=== PATIENT | female | born 1960 | race Caucasian/White ===

== ENCOUNTER → 2016-04-16 | Day surgery (SDC) | payer OTHER ==
[~2016-04-16] VITALS: Ht 157.4 cm; Wt 117.9 kg
[~2016-04-16] MED LIST: ANAPROX DS550 MG PO; CARAFATE1 GM/10 ML PO; CIPRO500 MG PO; CIPROFLOXACIN500 MG PO; CLARITIN10 MG PO; Carafate1 GM/10 ML PO; DELTASONE20 M1 PO; ETODOLAC ER400 MG PO; FLAGYL500 MG PO; FLONASE ALLERG9.9 ML NAS; MICROZIDE12.5 M1 PO; NEXIUM40 MG PO; PRILOSEC20 M1 PO; PRILOSEC40 M1 PO; PYRIDIUM200 MG PO; VICODIN 5/500 505 MG PO; ZITHROMAX250 MG PO; ZOFRAN ODT4 MG SL
--- NOTE | ~2016-04-16 | PROC NOTE ---
[place], [place] PROCEDURE NOTE NAME: KENYATTA CEDENO [facility] #: [id number] UNIT #: [id number] ROOM: DOCTOR: YUAN MCKEON,KYRA BIRTHDATE: [birth year] DOS: 04/16/2016 PROCEDURE PERFORMED: Esophagogastroduodenoscopy and biopsy. INDICATIONS: HISTORY of gastric ulcer and Grant's esophagus. An informed consent was obtained from the patient after indication of procedure, the alternatives and potential complications were explained to her. PROCEDURE MEDICATIONS: Sedation was administered by Anesthesiology Department. Scope used was Olympus diagnostic adult upper endoscope GIF-180. That insertion was to descending duodenum. FINDINGS: After adequate sedation, the patient was placed in left lateral decubitus position, scope was introduced under direct visualization through the upper esophageal sphincter into the esophagus. Esophageal mucosa appeared normal with irregular Z-line borders suggestive of short-segment Grant esophagus, seen from 34-36 cm. The stomach was then intubated, gastric mucosa inspected. Small to medium amounts of food residues were noted suggestive of delayed gastric emptying. Underlying mucosa appeared normal with healed gastric ulcers and no other abnormalities. Retroflex views and fundus were unremarkable. The pylorus was intubated easily. The duodenal bulb and descending duodenum were within normal range. Scope was then withdrawn after the stomach was decompressed. The patient tolerated the procedure well. IMPRESSION: 1. Irregular Z-line border, rule out short-segment Grant esophagus, biopsies obtained. 2. Food residues in the stomach, rule out gastroparesis. 3. Healed gastric ulcer. PLAN: We will review the histopathology reports and treat the patient accordingly. The patient will be scheduled for a small bowel study as an outpatient. Office followup will be in 2-3 weeks. KYRA BOLDEN MD CM:PROCNOTE:PROCEDURE NOTE [id number] [facility]ITALCOOKIE BOLDEN MD
[2016-04-16 08:24] VITALS: BP 135/75
[2016-04-16 08:50] VITALS: BP 152/79
[2016-04-16 09:05] VITALS: BP 138/72
[2016-04-16 09:20] VITALS: BP 119/72
== END | disposition home or self-care (01) ==
LOC: SDC 04-13 14:45
DX: K22.70 Barrett's esophagus without dysplasia (principal); K21.0 Gastro-esophageal reflux disease with esophagitis; G47.30 Sleep apnea, unspecified; F17.210 Nicotine dependence, cigarettes, uncomplicated; Z98.51 Tubal ligation status

== ENCOUNTER → 2016-05-04 | Outpatient (CLI) | payer OTHER | END | disposition home or self-care (01) | LOC: CT 04-27 16:00 | DX: K57.92 Diverticulitis of intestine, part unspecified, without perforation or abscess without bleeding (principal); Z90.49 Acquired absence of other specified parts of digestive tract ==

== ENCOUNTER 2017-04-05 00:32 | Emergency (ER) | payer MEDICARE ==
[~2017-04-05] VITALS: Ht 157.4 cm; Wt 99.8 kg
[2017-04-05] MEDS ORDERED: AUGMENTIN 875875 MG PO (00:47)
[2017-04-05] MEDS ORDERED: FLONASE ALLERG9.9 ML NAS (00:47)
== END 2017-04-05 01:05 | disposition home or self-care (01) ==
LOC: ED 00:32
DX: J01.00 Acute maxillary sinusitis, unspecified (principal); F17.200 Nicotine dependence, unspecified, uncomplicated; E66.01 Morbid (severe) obesity due to excess calories; Z91.040 Latex allergy status; Z79.899 Other long term (current) drug therapy; Z68.42 Body mass index [BMI] 45.0-49.9, adult

== ENCOUNTER 2017-06-27 19:46 | Emergency (ER) | payer MEDICARE ==
[~2017-06-27] VITALS: Ht 157.4 cm; Wt 93.9 kg
[~2017-06-27 19:46] MED LIST changes: +AUGMENTIN 875875 MG PO
[2017-06-27 20:21] LABS: BASO % 0.4 % (0.0-1.0); EOS # 0.2 10*3/uL (0.0-0.4); EOS % 2.1 % (1.0-4.0); HEMATOCRIT 47.1 % (37.0-47.0); HEMOGLOBIN 15.7 g/dl (12.0-16.0); LYMPH # 2.2 10*3/uL (1.3-4.4); LYMPH % 22.6 % (27.0-41.0); MEAN CELL VOLUME 97.1 fl (81.0-99.0); MEAN CORPUSCULAR HGB 32.4 pg (27.0-31.0); MEAN CORPUSCULAR HGB CONC 33.3 g/dl (33.0-37.0); MEAN PLATELET VOLUME 9.8 fl (9.6-12.3); MONO # 0.9 10*3/uL (0.1-1.0); MONO % 8.9 % (3.0-9.0); NEUT # 6.4 10*3/uL (2.3-7.9); NEUT % 65.5 % (47.0-73.0); PLATELET COUNT AUTOMATED 206 10*3/uL (130-400); RED BLOOD COUNT 4.85 10*6/uL (4.10-5.10); RED CELL DISTRI WIDTH 14.5 % (0-14.5); WHITE BLOOD COUNT 9.7 10*3/uL (4.8-10.8)
[2017-06-27 20:31] LABS: ACT PARTIAL THROMBO TIME 26.7 SECONDS (20.8-31.5)
[2017-06-27 20:43] LABS: ALBUMIN 3.5 gm/dl (3.1-4.5); ALKALINE PHOSPHATASE 92 U/L (45-117); BUN 16 mg/dl (7-24); CHLORIDE 112 mmol/L (98-107); CREATININE 0.72 mg/dL (0.55-1.02); POTASSIUM 3.8 mmol/L (3.5-5.1); SGOT/AST 14 IU/L (3-35); SGPT/ALT 23 U/L (12-78); SODIUM 143 mmol/L (136-145); TOTAL PROTEIN 6.8 gm/dL (6.4-8.2); TROPONIN I < 0.015 ng/ml (<0.045)
== END 2017-06-27 22:28 | disposition home or self-care (01) ==
LOC: ED 19:46
PROVIDERS: Student in an Organized Health Care Education/Training Program
DX: R00.2 Palpitations (principal); F17.200 Nicotine dependence, unspecified, uncomplicated; Z90.49 Acquired absence of other specified parts of digestive tract; Z98.51 Tubal ligation status; Z79.899 Other long term (current) drug therapy; Z91.040 Latex allergy status

== ENCOUNTER → 2019-09-13 | Outpatient (CLI) | payer MEDICARE | END | disposition home or self-care (01) | LOC: MAMMO 09:00 | DX: M79.89 Other specified soft tissue disorders (principal); N64.9 Disorder of breast, unspecified ==

== ENCOUNTER → 2020-07-31 | Outpatient (CLI) | payer MEDICARE ==
[2020-07-31 11:19] LABS: BASO # 0.1 10*3/uL (0.0-0.1); BASO % 0.6 % (0.0-1.0); EOS # 0.3 10*3/uL (0.0-0.4); EOS % 3.2 % (1.0-4.0); HEMATOCRIT 47.7 % (37.0-47.0); LYMPH # 1.6 10*3/uL (1.3-4.4); LYMPH % 20.9 % (27.0-41.0); MEAN CORPUSCULAR HGB 32.5 pg (27.0-31.0); MEAN CORPUSCULAR HGB CONC 32.5 g/dl (33.0-37.0); MEAN PLATELET VOLUME 9.2 fl (9.6-12.3); MONO # 0.7 10*3/uL (0.1-1.0); MONO % 9.1 % (3.0-9.0); NEUT % 65.4 % (47.0-73.0); PLATELET COUNT AUTOMATED 259 10*3/uL (130-400); RED BLOOD COUNT 4.77 10*6/uL (4.10-5.10); RED CELL DISTRI WIDTH 14.2 % (0-14.5); RETICULOCYTE % 1.35 % (0.50-2.50); WHITE BLOOD COUNT 7.7 10*3/uL (4.8-10.8)
[2020-07-31 11:20] LABS: BILIRUBIN Negative (Negative); BLOOD Trace-Intact (Negative); CLARITY Cloudy (Clear); COLOR Yellow (Yellow); GLUCOSE Negative (Negative); KETONE 1+ (Negative); LEUKO ESTERASE 2+ (Negative); NITRITE Negative (Negative); SPECIFIC GRAVITY 1.025 (1.001-1.030)
[2020-07-31 11:26] LABS: BACTERIA 2+; EPITHELIAL CELLS TNTC; MUCOUS TRACE; RBC 0-2 rbc/hpf (0-2)
[2020-07-31 11:51] LABS: ALBUMIN 3.1 gm/dl (3.1-4.5); BUN 10 mg/dl (7-24); CHLORIDE 107 mmol/L (98-107); CHOLESTEROL 192 mg/dL (<200); GAMMA GLUTAMYL TRANSPEPTIDASE 16 U/L (5-55); HDL CHOLESTEROL 65 mg/dl (40-60); IRON 77 ug/dL (50-170); LDL CHOLESTEROL 107 mg/dL (9-159); POTASSIUM 3.7 mmol/L (3.5-5.1); SGOT/AST 12 IU/L (3-35); SGPT/ALT 14 U/L (12-78); SODIUM 141 mmol/L (136-145); TOTAL IRON BINDING CAPACITY 269 ug/dl (250-450); TOTAL PROTEIN 7.4 gm/dL (6.4-8.2); TRIGLYCERIDES 101 mg/dl (<150); VLDL CHOLESTEROL 20 mg/dL (6-40)
[2020-07-31 11:57] LABS: FERRITIN 155.3 ng/mL (10.0-291.0); VITAMIN D, 25-HYDROXY 10.6 ng/mL (30-100)
[2020-07-31 11:59] LABS: ALKALINE PHOSPHATASE 86 U/L (45-117)
== END | disposition home or self-care (01) ==
LOC: LAB 10:56
PROVIDERS: ATTEND Family Medicine
DX: E55.9 Vitamin D deficiency, unspecified (principal); E78.5 Hyperlipidemia, unspecified; R53.83 Other fatigue; R79.89 Other specified abnormal findings of blood chemistry

== ENCOUNTER → 2020-09-09 | Outpatient (CLI) | payer MEDICARE ==
[2020-09-09 10:43] LABS: BASO % 0.4 % (0.0-1.0); EOS # 0.3 10*3/uL (0.0-0.4); EOS % 3.9 % (1.0-4.0); HEMATOCRIT 49.1 % (37.0-47.0); LYMPH # 1.4 10*3/uL (1.3-4.4); MEAN CELL VOLUME 101.7 fl (81.0-99.0); MEAN CORPUSCULAR HGB 32.7 pg (27.0-31.0); MEAN CORPUSCULAR HGB CONC 32.2 g/dl (33.0-37.0); MEAN PLATELET VOLUME 9.4 fl (9.6-12.3); MONO # 0.8 10*3/uL (0.1-1.0); MONO % 11.7 % (3.0-9.0); NEUT # 4.4 10*3/uL (2.3-7.9); NEUT % 63.4 % (47.0-73.0); PLATELET COUNT AUTOMATED 268 10*3/uL (130-400); RED BLOOD COUNT 4.83 10*6/uL (4.10-5.10); RED CELL DISTRI WIDTH 14.1 % (0-14.5); WHITE BLOOD COUNT 6.9 10*3/uL (4.8-10.8)
[2020-09-09 10:49] LABS: BILIRUBIN Negative (Negative); BLOOD Trace-Intact (Negative); CLARITY Clear (Clear); COLOR Yellow (Yellow); GLUCOSE Negative (Negative); KETONE Negative (Negative); LEUKO ESTERASE Negative (Negative); NITRITE Negative (Negative); PH 5.5 (4.5-8.0)
[2020-09-09 11:00] LABS: ALBUMIN 3.4 gm/dl (3.1-4.5); ALKALINE PHOSPHATASE 90 U/L (45-117); BUN 15 mg/dl (7-24); CHLORIDE 111 mmol/L (98-107); CREATININE 0.65 mg/dL (0.55-1.02); SGOT/AST 12 IU/L (3-35); SGPT/ALT 19 U/L (12-78); SODIUM 143 mmol/L (136-145); TOTAL PROTEIN 7.6 gm/dL (6.4-8.2)
[2020-09-09 11:22] LABS: BACTERIA 2+; MUCOUS 2+; WBC 0-2 wbc/hpf (0-5)
== END | disposition home or self-care (01) ==
LOC: LAB 10:19 → CT 11:00
PROVIDERS: ATTEND Urology
DX: D35.02 Benign neoplasm of left adrenal gland (principal); R31.9 Hematuria, unspecified

== ENCOUNTER → 2020-10-06 | Outpatient (CLI) | payer MEDICARE ==
[2020-10-06 09:50] LABS: BASO % 0.5 % (0.0-1.0); EOS # 0.5 10*3/uL (0.0-0.4); EOS % 5.6 % (1.0-4.0); HEMATOCRIT 47.6 % (37.0-47.0); LYMPH # 1.5 10*3/uL (1.3-4.4); LYMPH % 18.8 % (27.0-41.0); MEAN CORPUSCULAR HGB 33.2 pg (27.0-31.0); MEAN CORPUSCULAR HGB CONC 33.2 g/dl (33.0-37.0); MEAN PLATELET VOLUME 9.3 fl (9.6-12.3); MONO # 0.8 10*3/uL (0.1-1.0); NEUT # 5.3 10*3/uL (2.3-7.9); NEUT % 64.7 % (47.0-73.0); PLATELET COUNT AUTOMATED 268 10*3/uL (130-400); RED BLOOD COUNT 4.76 10*6/uL (4.10-5.10); RED CELL DISTRI WIDTH 13.6 % (0-14.5); WHITE BLOOD COUNT 8.2 10*3/uL (4.8-10.8)
[2020-10-06 09:56] LABS: ALKALINE PHOSPHATASE 82 U/L (45-117); BUN 8 mg/dl (7-24); CHLORIDE 108 mmol/L (98-107); CREATININE 0.46 mg/dL (0.55-1.02); POTASSIUM 3.3 mmol/L (3.5-5.1); SGOT/AST 13 IU/L (3-35); SGPT/ALT 16 U/L (12-78); SODIUM 141 mmol/L (136-145); TOTAL PROTEIN 7.4 gm/dL (6.4-8.2)
[2020-10-08 12:07] LABS: CREATININE, RANDOM URINE 93.8 mg/dL (Not Estab.)
[2020-10-10 02:06] LABS: METANEPHRINE, PLASMA <10.0 pg/mL (0.0-88.0); NORMETANEPHRINE, PLASMA 87.5 pg/mL (0.0-136.8)
[2020-10-14 18:07] LABS: METANEPH-CREAT RATIO 0.7 (0.0-1.0)
[2020-10-19 11:06] LABS: VMA RANDOM 4.8 mg/L (Undefined)
== END | disposition home or self-care (01) ==
LOC: LAB 10-03 11:50
PROVIDERS: ATTEND Urology
DX: E27.9 Disorder of adrenal gland, unspecified (principal)

== ENCOUNTER → 2020-12-03 | Outpatient (CLI) | payer MEDICARE | END | disposition home or self-care (01) | LOC: RAD 16:05 | PROVIDERS: ATTEND Chiropractor | DX: M47.812 Spondylosis without myelopathy or radiculopathy, cervical region (principal); M54.5 Low back pain ==

== ENCOUNTER → 2021-08-21 | Outpatient (CLI) | payer MEDICARE ==
[~2021-08-21] MED LIST changes: +AUGMENTIN 500500 M1 PO; +TOPROL XL25 MG PO; +TORSEMIDE20 MG PO; +ZOLPIDEM10 MG PO
[2021-08-21 10:44] LABS: BASO % 0.5 % (0.0-1.0); EOS # 0.3 10*3/uL (0.0-0.4); EOS % 3.6 % (1.0-4.0); HEMATOCRIT 47.9 % (37.0-47.0); LYMPH # 1.5 10*3/uL (1.3-4.4); LYMPH % 17.8 % (27.0-41.0); MEAN CORPUSCULAR HGB 33.4 pg (27.0-31.0); MEAN CORPUSCULAR HGB CONC 33.4 g/dl (33.0-37.0); MEAN PLATELET VOLUME 9.9 fl (9.6-12.3); MONO # 0.8 10*3/uL (0.1-1.0); MONO % 9.4 % (3.0-9.0); NEUT # 5.7 10*3/uL (2.3-7.9); NEUT % 68.3 % (47.0-73.0); PLATELET COUNT AUTOMATED 228 10*3/uL (130-400); RED BLOOD COUNT 4.79 10*6/uL (4.10-5.10); RED CELL DISTRI WIDTH 13.2 % (0-14.5); RETICULOCYTE % 1.54 % (0.50-2.50); WHITE BLOOD COUNT 8.4 10*3/uL (4.8-10.8)
[2021-08-21 11:03] LABS: BILIRUBIN Negative (Negative); BLOOD Negative (Negative); CLARITY Cloudy (Clear); COLOR Yellow (Yellow); GLUCOSE Negative (Negative); KETONE Trace (Negative); LEUKO ESTERASE 1+ (Negative); NITRITE Negative (Negative); SPECIFIC GRAVITY 1.025 (1.001-1.030)
[2021-08-21 11:03] LABS: ALKALINE PHOSPHATASE 75 U/L (45-117); BUN 19 mg/dl (7-24); CHLORIDE 111 mmol/L (98-107); CHOLESTEROL 211 mg/dL (<200); CREATININE 0.67 mg/dL (0.55-1.02); GAMMA GLUTAMYL TRANSPEPTIDASE 25 U/L (5-55); IRON 78 ug/dL (50-170); LDL CHOLESTEROL 128 mg/dL (9-159); POTASSIUM 3.5 mmol/L (3.5-5.1); SGOT/AST 16 IU/L (3-35); SGPT/ALT 22 U/L (12-78); SODIUM 143 mmol/L (136-145); TOTAL IRON BINDING CAPACITY 361 ug/dl (250-450); TOTAL PROTEIN 7.5 gm/dL (6.4-8.2); TRIGLYCERIDES 139 mg/dl (<150)
[2021-08-21 11:09] LABS: THYROID STIM HORMONE (HS) 0.536 uIU/ml (0.358-4.75)
[2021-08-21 11:55] LABS: BACTERIA 1+; MUCOUS 2+
== END | disposition home or self-care (01) ==
LOC: LAB 10:04
PROVIDERS: ATTEND Family Medicine
DX: J98.4 Other disorders of lung (principal); E78.5 Hyperlipidemia, unspecified; E55.9 Vitamin D deficiency, unspecified; R79.89 Other specified abnormal findings of blood chemistry; R53.83 Other fatigue; R74.8 Abnormal levels of other serum enzymes; M51.34 Other intervertebral disc degeneration, thoracic region

== ENCOUNTER → 2021-08-25 | Outpatient (CLI) | payer MEDICARE ==
[2021-08-25 12:04] LABS: BUN 20 mg/dl (7-24); CHLORIDE 108 mmol/L (98-107); CREATININE 0.92 mg/dL (0.55-1.02); POTASSIUM 3.4 mmol/L (3.5-5.1); SODIUM 141 mmol/L (136-145)
== END | disposition home or self-care (01) ==
LOC: LAB 11:17
PROVIDERS: ATTEND Internal Medicine Cardiovascular Disease
DX: I50.41 Acute combined systolic (congestive) and diastolic (congestive) heart failure (principal)

== ENCOUNTER → 2021-09-08 | Outpatient (CLI) | payer MEDICARE ==
[2021-09-08 11:21] LABS: BASO % 0.5 % (0.0-1.0); EOS # 0.4 10*3/uL (0.0-0.4); EOS % 5.7 % (1.0-4.0); HEMATOCRIT 49.3 % (37.0-47.0); LYMPH # 1.3 10*3/uL (1.3-4.4); LYMPH % 21.3 % (27.0-41.0); MEAN CORPUSCULAR HGB 34.8 pg (27.0-31.0); MEAN CORPUSCULAR HGB CONC 34.5 g/dl (33.0-37.0); MEAN PLATELET VOLUME 9.7 fl (9.6-12.3); MONO # 0.6 10*3/uL (0.1-1.0); MONO % 9.7 % (3.0-9.0); NEUT # 3.9 10*3/uL (2.3-7.9); NEUT % 62.3 % (47.0-73.0); PLATELET COUNT AUTOMATED 261 10*3/uL (130-400); RED BLOOD COUNT 4.88 10*6/uL (4.10-5.10); RED CELL DISTRI WIDTH 14.3 % (0-14.5); WHITE BLOOD COUNT 6.2 10*3/uL (4.8-10.8)
[2021-09-08 11:42] LABS: BUN 15 mg/dl (7-24); CHLORIDE 109 mmol/L (98-107); CREATININE 0.73 mg/dL (0.55-1.02); POTASSIUM 3.2 mmol/L (3.5-5.1); SODIUM 143 mmol/L (136-145)
== END | disposition home or self-care (01) ==
LOC: LAB 10:58
PROVIDERS: ATTEND Internal Medicine Cardiovascular Disease
DX: Z01.812 Encounter for preprocedural laboratory examination (principal); I50.41 Acute combined systolic (congestive) and diastolic (congestive) heart failure

== ENCOUNTER → 2022-01-18 | Day surgery (SDC) | payer MEDICARE ==
[~2022-01-18] VITALS: Ht 157.4 cm; Wt 73.5 kg
[~2022-01-18] MED LIST changes: +ALDACTAZIDE 251 EACH PO; +CARAFATE1 G1 PO; +ENTRESTO 24 MG1 EACH PO; +ENTRESTO 49 MG1 EACH PO; +JARDIANCE10 MG PO; +PROTONIX40 MG PO
[2022-01-18 07:52] VITALS: BP 131/93
[2022-01-18 08:23] VITALS: BP 128/83
[2022-01-18 08:38] VITALS: BP 132/81
[2022-01-18 08:51] VITALS: BP 143/78
== END | disposition home or self-care (01) ==
LOC: SDC 01-14 11:00
PROVIDERS: ATTEND Surgery
DX: K21.00 Gastro-esophageal reflux disease with esophagitis, without bleeding (principal); K29.50 Unspecified chronic gastritis without bleeding; K44.9 Diaphragmatic hernia without obstruction or gangrene

== ENCOUNTER 2022-02-14 23:02 | Inpatient (IN) | payer MEDICARE ==
[~2022-02-14] VITALS: Ht 157.4 cm; Wt 71.8 kg
[2022-02-14 23:32] VITALS: BP 118/75
[2022-02-15 01:16] LABS: BASO # 0.1 10*3/uL (0.0-0.1); BASO % 0.7 % (0.0-1.0); EOS # 0.3 10*3/uL (0.0-0.4); EOS % 3.2 % (1.0-4.0); HEMATOCRIT 45.5 % (37.0-47.0); LYMPH # 1.4 10*3/uL (1.3-4.4); LYMPH % 17.7 % (27.0-41.0); MEAN CELL VOLUME 103.9 fl (81.0-99.0); MEAN CORPUSCULAR HGB 35.8 pg (27.0-31.0); MEAN CORPUSCULAR HGB CONC 34.5 g/dl (33.0-37.0); MEAN PLATELET VOLUME 9.1 fl (9.6-12.3); MONO # 0.9 10*3/uL (0.1-1.0); MONO % 11.3 % (3.0-9.0); NEUT # 5.4 10*3/uL (2.3-7.9); NEUT % 66.7 % (47.0-73.0); PLATELET COUNT AUTOMATED 268 10*3/uL (130-400); RED BLOOD COUNT 4.38 10*6/uL (4.10-5.10); RED CELL DISTRI WIDTH 13.2 % (0-14.5); WHITE BLOOD COUNT 8.1 10*3/uL (4.8-10.8)
[2022-02-15 01:33] LABS: ALKALINE PHOSPHATASE 69 U/L (45-117); BUN 19 mg/dl (7-24); CHLORIDE 104 mmol/L (98-107); CREATININE 0.77 mg/dL (0.55-1.02); SGOT/AST 14 IU/L (3-35); SGPT/ALT 17 U/L (12-78); SODIUM 145 mmol/L (136-145); TOTAL PROTEIN 7.2 gm/dL (6.4-8.2)
[2022-02-15 01:37] LABS: POTASSIUM 2.2 mmol/L (3.5-5.1)
[2022-02-15 02:19] LABS: BILIRUBIN Negative (Negative); BLOOD Trace-Lysed (Negative); CLARITY Cloudy (Clear); COLOR Yellow (Yellow); GLUCOSE 1+ (Negative); KETONE 1+ (Negative); LEUKO ESTERASE 2+ (Negative); NITRITE Negative (Negative); PH 6.5 (4.5-8.0); SPECIFIC GRAVITY >= 1.030 (1.001-1.030)
[2022-02-15 02:29] LABS: BACTERIA 2+; WBC 16-20 wbc/hpf (0-5)
[2022-02-15 02:30] LABS: MUCOUS 1+
[2022-02-15 03:00] VITALS: BP 121/72
[2022-02-15 08:11] VITALS: BP 131/70
[2022-02-15 09:10] LABS: BUN 14 mg/dl (7-24); CHLORIDE 107 mmol/L (98-107); CREATININE 0.62 mg/dL (0.55-1.02); SODIUM 144 mmol/L (136-145)
[2022-02-15 09:12] LABS: POTASSIUM 2.3 mmol/L (3.5-5.1)
[2022-02-15 14:12] VITALS: BP 122/79
[2022-02-15 16:17] LABS: BUN 14 mg/dl (7-24); CHLORIDE 98 mmol/L (98-107); CREATININE 0.81 mg/dL (0.55-1.02); POTASSIUM 2.7 mmol/L (3.5-5.1); SODIUM 142 mmol/L (136-145)
[2022-02-15 19:10] VITALS: BP 104/66
[2022-02-15 20:45] VITALS: BP 144/72
[2022-02-16] VITALS: BP 102/72
[2022-02-16 06:28] LABS: BASO # 0.1 10*3/uL (0.0-0.1); BASO % 0.6 % (0.0-1.0); EOS # 0.4 10*3/uL (0.0-0.4); EOS % 4.4 % (1.0-4.0); HEMATOCRIT 48.3 % (37.0-47.0); LYMPH # 1.3 10*3/uL (1.3-4.4); LYMPH % 16.2 % (27.0-41.0); MEAN CELL VOLUME 104.1 fl (81.0-99.0); MEAN CORPUSCULAR HGB 35.6 pg (27.0-31.0); MEAN CORPUSCULAR HGB CONC 34.2 g/dl (33.0-37.0); MEAN PLATELET VOLUME 9.3 fl (9.6-12.3); MONO # 0.9 10*3/uL (0.1-1.0); MONO % 10.8 % (3.0-9.0); NEUT # 5.5 10*3/uL (2.3-7.9); NEUT % 67.2 % (47.0-73.0); PLATELET COUNT AUTOMATED 283 10*3/uL (130-400); RED BLOOD COUNT 4.64 10*6/uL (4.10-5.10); RED CELL DISTRI WIDTH 13.2 % (0-14.5); WHITE BLOOD COUNT 8.3 10*3/uL (4.8-10.8)
[2022-02-16 07:05] LABS: BUN 14 mg/dl (7-24); CHLORIDE 95 mmol/L (98-107); CREATININE 0.64 mg/dL (0.55-1.02); SODIUM 139 mmol/L (136-145)
[2022-02-16 07:06] LABS: SGOT/AST 16 IU/L (3-35); TOTAL PROTEIN 7.3 gm/dL (6.4-8.2)
[2022-02-16 07:07] LABS: ALKALINE PHOSPHATASE 68 U/L (45-117); SGPT/ALT 18 U/L (12-78)
[2022-02-16 08:00] VITALS: BP 112/78
[2022-02-16 09:41] LABS: VITAMIN D, 25-HYDROXY 12.9 ng/mL (30-100)
[2022-02-16 12:00] VITALS: BP 116/80
[2022-02-16 16:00] VITALS: BP 119/87
[2022-02-16 18:51] LABS: BUN 17 mg/dl (7-24); CHLORIDE 98 mmol/L (98-107); CREATININE 0.95 mg/dL (0.55-1.02); SODIUM 140 mmol/L (136-145)
[2022-02-16 20:00] VITALS: BP 110/76
[2022-02-17] VITALS: BP 86/53
[2022-02-17 07:23] LABS: BASO # 0.1 10*3/uL (0.0-0.1); BASO % 0.6 % (0.0-1.0); EOS # 0.3 10*3/uL (0.0-0.4); EOS % 3.2 % (1.0-4.0); HEMATOCRIT 50.4 % (37.0-47.0); LYMPH # 1.6 10*3/uL (1.3-4.4); LYMPH % 18.8 % (27.0-41.0); MEAN CELL VOLUME 104.3 fl (81.0-99.0); MEAN CORPUSCULAR HGB 34.8 pg (27.0-31.0); MEAN CORPUSCULAR HGB CONC 33.3 g/dl (33.0-37.0); MEAN PLATELET VOLUME 9.4 fl (9.6-12.3); MONO # 1.1 10*3/uL (0.1-1.0); MONO % 12.2 % (3.0-9.0); NEUT # 5.6 10*3/uL (2.3-7.9); NEUT % 64.7 % (47.0-73.0); PLATELET COUNT AUTOMATED 323 10*3/uL (130-400); RED BLOOD COUNT 4.83 10*6/uL (4.10-5.10); WHITE BLOOD COUNT 8.7 10*3/uL (4.8-10.8)
[2022-02-17 07:37] LABS: BUN 19 mg/dl (7-24); CHLORIDE 100 mmol/L (98-107); POTASSIUM 2.6 mmol/L (3.5-5.1); SODIUM 140 mmol/L (136-145)
[2022-02-17 08:00] VITALS: BP 109/81
[2022-02-17 12:00] VITALS: BP 128/75
[2022-02-17 16:00] VITALS: BP 126/64
[2022-02-17 20:00] VITALS: BP 131/76
[2022-02-18] VITALS: BP 126/62
[2022-02-18 06:39] LABS: BUN 17 mg/dl (7-24); CHLORIDE 104 mmol/L (98-107); CREATININE 0.74 mg/dL (0.55-1.02); POTASSIUM 3.1 mmol/L (3.5-5.1); SODIUM 139 mmol/L (136-145)
[2022-02-18 08:00] VITALS: BP 119/78
[2022-02-18 12:00] VITALS: BP 101/58
[2022-02-18 16:00] VITALS: BP 106/74
[2022-02-18 20:00] VITALS: BP 115/63
[2022-02-19] VITALS: BP 114/85
[2022-02-19 07:24] LABS: BUN 18 mg/dl (7-24); CHLORIDE 104 mmol/L (98-107); POTASSIUM 3.5 mmol/L (3.5-5.1); SODIUM 138 mmol/L (136-145)
[2022-02-19 08:00] VITALS: BP 120/88
[2022-02-19] MEDS ORDERED: ATIVAN1 MG PO (10:34)
[2022-02-19] MEDS ORDERED: KLOR-CON M2020 ME1 PO (10:34)
[2022-02-19] MEDS ORDERED: VISTARIL25 MG PO (10:34)
== END 2022-02-19 11:25 | disposition home or self-care (01) | DRG 206 ==
LOC: ED 23:02 → EDHOLD 02-15 04:29 → 4E 02-15 04:29
PROVIDERS: Emergency Medicine; Family Medicine; Internal Medicine; ADMIT Internal Medicine; ATTEND Internal Medicine
PROC: 5A09357 Assistance with Respiratory Ventilation, Less than 24 Consecutive Hours, Continuous Positive Airway Pressure (ICD-10-PCS; principal; 2022-02-15)
PROC: 5A09357 Assistance with Respiratory Ventilation, Less than 24 Consecutive Hours, Continuous Positive Airway Pressure (ICD-10-PCS; 2022-02-16)
PROC: 5A09357 Assistance with Respiratory Ventilation, Less than 24 Consecutive Hours, Continuous Positive Airway Pressure (ICD-10-PCS; 2022-02-17)
PROC: 5A09357 Assistance with Respiratory Ventilation, Less than 24 Consecutive Hours, Continuous Positive Airway Pressure (ICD-10-PCS; 2022-02-18)
DX: M94.0 Chondrocostal junction syndrome [Tietze] (principal); N39.0 Urinary tract infection, site not specified; E44.0 Moderate protein-calorie malnutrition; I50.22 Chronic systolic (congestive) heart failure; I42.8 Other cardiomyopathies; E87.6 Hypokalemia; S09.90XA Unspecified injury of head, initial encounter; K22.719 Barrett's esophagus with dysplasia, unspecified; K44.9 Diaphragmatic hernia without obstruction or gangrene; G47.33 Obstructive sleep apnea (adult) (pediatric); E66.01 Morbid (severe) obesity due to excess calories; R06.89 Other abnormalities of breathing; F17.219 Nicotine dependence, cigarettes, with unspecified nicotine-induced disorders; K21.9 Gastro-esophageal reflux disease without esophagitis; I11.0 Hypertensive heart disease with heart failure; E11.65 Type 2 diabetes mellitus with hyperglycemia; R13.10 Dysphagia, unspecified; R62.7 Adult failure to thrive; D53.9 Nutritional anemia, unspecified; Z85.01 Personal history of malignant neoplasm of esophagus; Z91.040 Latex allergy status; Z90.49 Acquired absence of other specified parts of digestive tract; Z98.51 Tubal ligation status; I25.2 Old myocardial infarction; Z90.3 Acquired absence of stomach [part of]; Z68.28 Body mass index [BMI] 28.0-28.9, adult

== ENCOUNTER 2022-05-29 06:10 | Emergency (ER) | payer MEDICARE ==
[~2022-05-29] VITALS: Wt 63.5 kg
[~2022-05-29 06:10] MED LIST changes: +ATIVAN1 MG PO; +KLOR-CON M2020 ME1 PO; +VISTARIL25 MG PO
[2022-05-29 06:54] LABS: BASO % 0.4 % (0.0-1.0); EOS # 0.1 10*3/uL (0.0-0.4); EOS % 1.9 % (1.0-4.0); HEMATOCRIT 35.9 % (37.0-47.0); LYMPH # 0.4 10*3/uL (1.3-4.4); LYMPH % 15.9 % (27.0-41.0); MEAN CELL VOLUME 97.8 fl (81.0-99.0); MEAN CORPUSCULAR HGB 32.2 pg (27.0-31.0); MEAN CORPUSCULAR HGB CONC 32.9 g/dl (33.0-37.0); MEAN PLATELET VOLUME 9.3 fl (9.6-12.3); MONO # 0.1 10*3/uL (0.1-1.0); MONO % 1.9 % (3.0-9.0); NEUT % 78.7 % (47.0-73.0); PLATELET COUNT AUTOMATED 174 10*3/uL (130-400); RED BLOOD COUNT 3.67 10*6/uL (4.10-5.10); RED CELL DISTRI WIDTH 14.5 % (0-14.5); WHITE BLOOD COUNT 2.6 10*3/uL (4.8-10.8)
[2022-05-29 07:12] LABS: ALKALINE PHOSPHATASE 66 U/L (46-116); BUN 8 mg/dl (9-23); CHLORIDE 103 mmol/L (98-107); POTASSIUM 2.9 mmol/L (3.4-5.1); SGPT/ALT 11 U/L (10-49); TOTAL PROTEIN 6.3 gm/dL (6.0-8.0)
[2022-05-29] MEDS ORDERED: PREDNISONE50 MG PO (07:38)
== END 2022-05-29 07:54 | disposition home or self-care (01) ==
LOC: ED 06:10
PROVIDERS: Internal Medicine
DX: E87.6 Hypokalemia (principal); T45.1X5A Adverse effect of antineoplastic and immunosuppressive drugs, initial encounter; Z91.041 Radiographic dye allergy status; Z88.8 Allergy status to other drugs, medicaments and biological substances; Z90.49 Acquired absence of other specified parts of digestive tract; Z98.51 Tubal ligation status; Z98.890 Other specified postprocedural states; F17.210 Nicotine dependence, cigarettes, uncomplicated; Y92.89 Other specified places as the place of occurrence of the external cause

== ENCOUNTER 2022-07-24 17:31 | Emergency (ER) | payer MEDICARE ==
[~2022-07-24] VITALS: Ht 157.4 cm; Wt 55.6 kg
[~2022-07-24 17:31] MED LIST changes: +ASPIRIN ADULT L81 M2 PO; +ATORVASTATIN CA40 M1 PO; +PREDNISONE50 MG PO
[2022-07-24 18:42] LABS: HEMATOCRIT 34.5 % (37.0-47.0); MEAN CORPUSCULAR HGB 30.2 pg (27.0-31.0); MEAN CORPUSCULAR HGB CONC 32.2 g/dl (33.0-37.0); MEAN PLATELET VOLUME 10.2 fl (9.6-12.3); NUCLEATED RED BLOOD CELL 0.1 % (0.0-0.0); PLATELET COUNT AUTOMATED 408 10*3/uL (130-400); RED BLOOD COUNT 3.67 10*6/uL (4.10-5.10); RED CELL DISTRI WIDTH 17.3 % (0-14.5); WHITE BLOOD COUNT 18.8 10*3/uL (4.8-10.8)
[2022-07-24 18:44] LABS: MANUAL DIFF REFLEX YES
[2022-07-24 18:55] LABS: ACT PARTIAL THROMBO TIME 26.1 SECONDS (20.0-32.1); INTERNATIONAL NORM RATIO 1.1 (2.0-3.5)
[2022-07-24 18:58] LABS: ALKALINE PHOSPHATASE 135 U/L (46-116); BUN 13 mg/dl (9-23); CHLORIDE 101 mmol/L (98-107); LIPASE 19 U/L (12-53); POTASSIUM 2.8 mmol/L (3.4-5.1); SGPT/ALT 95 U/L (10-49); TOTAL PROTEIN 6.7 gm/dL (6.0-8.0)
[2022-07-24 19:05] LABS: PLATELET SUFFICIENCY HIGH (NORMAL); TOTAL CELLS COUNTED 100 #CELLS
[2022-07-25 08:43] LABS: BUN 11 mg/dl (9-23); CHLORIDE 104 mmol/L (98-107); POTASSIUM 3.4 mmol/L (3.4-5.1)
== END 2022-07-25 10:33 | disposition short-term general hospital (02) ==
LOC: ED 17:31
PROVIDERS: Emergency Medicine; Physician Assistant
DX: C80.1 Malignant (primary) neoplasm, unspecified (principal); R18.0 Malignant ascites; E87.6 Hypokalemia; R11.0 Nausea; K21.9 Gastro-esophageal reflux disease without esophagitis; Z91.040 Latex allergy status; Z88.8 Allergy status to other drugs, medicaments and biological substances; Z90.49 Acquired absence of other specified parts of digestive tract; Z98.51 Tubal ligation status; Z98.890 Other specified postprocedural states; F17.210 Nicotine dependence, cigarettes, uncomplicated